=== PATIENT | male | born 1940 | race Two or more races ===

== ENCOUNTER → 2019-06-20 | Outpatient (CLI) | payer MEDICARE, BC ==
[~2019-06-20] MED LIST: ASPIR 8181 MG PO; LIPITOR10 MG PO
--- NOTE | 2019-06-20 14:23 | Diagnostic Imaging Report ---
Indication: Right flank pain Technique: Grayscale and duplex images of the kidneys, retroperitoneum, and bladder were obtained. Comparison: none Findings: Right kidney measures 11.2 cm in length. Left kidney measures 11.8 cm in length. Both kidneys demonstrate normal echogenicity. No hydronephrosis. No focal abnormality. Prominent columns of Khai noted bilaterally.. Normal inferior vena cava. Bladder is normal. Prostate volume is calculated at 55 mL Impression: Essentially unremarkable exam. Negative for hydronephrosis Mildly prominent prostate.
== END | disposition home or self-care (01) ==
LOC: ULS 13:18
DX: R10.9 Unspecified abdominal pain (principal); M54.9 Dorsalgia, unspecified
CPT/HCPCS: 76770